=== PATIENT | male | born 1990 | race Caucasian/White ===

== ENCOUNTER 2017-03-17 18:58 | Emergency (ER) | payer MEDICAID ==
[~2017-03-17] VITALS: Ht 162.6 cm; Wt 99.8 kg
[~2017-03-17 18:58] MED LIST: doxycycline; ibuprofen
[2017-03-17 19:00] VITALS: BP 114/82
== END 2017-03-17 23:23 | disposition left against medical advice (07) ==
LOC: EDBD 18:58 → EDSEX 18:58 → ER 19:15
DX: R06.02 Shortness of breath (principal); F41.9 Anxiety disorder, unspecified; Z59.0 Homelessness; Z53.21 Procedure and treatment not carried out due to patient leaving prior to being seen by health care provider